=== PATIENT | male | born 1955 | race Caucasian/White ===

== ENCOUNTER 2022-03-11 15:05 | Outpatient (REF) | payer MEDICARE, SELFPAY ==
[2022-03-11 16:35] LABS: ALT 31 U/L (16-63); AST 22 U/L (15-37); Albumin 4.3 g/dL (3.4-5.0); Alkaline Phosphatase 28 U/L (46-116); Anion Gap 10.4 mmol/L (3-11); BUN 23 mg/dL (7-18); Bilirubin, Total 0.2 mg/dL (0.2-1.0); CO2 29.6 mmol/L (21.0-32.0); CREATININE 1.1 mg/dL (0.70-1.30); Calcium 9.4 mg/dL (8.5-10.1); Calculated LDL 97 mg/dL (<100); Chloride 99 mmol/L (98-107); Cholesterol 174 mg/dL (<200); Glucose 102 mg/dL (74-106); HDL Cholesterol 53 mg/dL (40-60); Potassium 4.2 mmol/L (3.5-5.1); Sodium 139 mmol/L (136-145); Total Protein 7.9 g/dL (6.4-8.2); Triglyceride 121 mg/dL (<150)
[2022-03-11 16:51] LABS: Hemoglobin A1C 6.4 % (<5.7)
== END 2022-03-11 15:06 | disposition home or self-care (01) ==
LOC: NCHCN 15:05
PROVIDERS: PCP Nurse Practitioner Family; Visit Provider Nurse Practitioner Family
DX: E11.9 Type 2 diabetes mellitus without complications (principal); I10 Essential (primary) hypertension; M54.50 Low back pain, unspecified
CPT/HCPCS: 80053; 80061; 83036

== ENCOUNTER → 2022-03-20 04:24 | Outpatient (CLI) | payer MEDICARE, SELFPAY ==
--- NOTE | 2022-03-20 | DI.MRI_ITS ---
Exam(s) MR LUMBAR SPINE WO EXAM: MR LUMBAR SPINE WO CLINICAL HISTORY: BACK PAIN W/ RADICULOPATHY M54.16 LUMBOSACRAL DISC DEGENERATION M51.37. TECHNIQUE: Multiplanar multisequence MRI of the Lumbar spine was performed. COMPARISON: No exams were available for comparison FINDINGS: Conus medullaris is at normal level. There is no evidence of conus mass nor subjacent clumping of in trathecal nerve roots to suggest arachnoiditis. The distal thecal sac is at L5-S1 level, slightly hi gher than typical. No evidence of Tarlov intra sacral CIS nor other significant findings within the sacral canal. Bones:There are no fractures nor ominous osseous lesions in the lumbar vertebral bodies and visualize d sacrum. With respect to the individual levels... T12-L1: Unremarkable L1-2: Normal disc height and signal. No disc herniation nor central canal stenosis.No foraminal steno sis L2-3: Normal disc height. No disc herniation nor central canal stenosis.No foraminal stenosis.No face t arthropathy. L3-4: This level exhibits normal disc height but posteriorly there is broad annular bulging and this extends into the floor of the exiting neural foramina bilaterally where this results in an element of bilateral foraminal stenosis, more so on the right side. At the level of the exiting right neural f oramen the annular bulging extends for a distance of 5 millimeters cephalad to the level disc space. In the opposite-left exiting neural foramen and it does not extend above the disc space level. On t he right side there is impingement of the exiting right nerve root in the exiting neural foramen betw een the annulus at this level and overlying right L3 pedicle. Less impingement of the exiting left n erve root is noted. There is mild central spinal canal stenosis which is mostly related to short AP dimensions the pedicles. There are no obvious degenerative overgrowth changes in the facet joints. No significant ligamentum flavum hypertrophy. L4-5: This level exhibits relatively preserved disc height and signal. However, there is an element of mild degenerative anterolisthesis of L4 upon L5 due to advanced facet joint degenerative changes b ilaterally. There is mild central spinal canal stenosis. Lateral recesses are slightly CT are sligh tly carried forward. There is only mild bilateral foraminal stenosis. Preserved fat signal around b oth exiting nerve roots at the level of the exiting bilateral neural foramina. There are no Modic-ty pe sub endplate marrow changes at this level. L5-S1: This level exhibits chronic advanced disc space narrowing with mild Modic type 2 sub endplate fatty marrow changes. There is posterior annular bulging at this level but without a dominant disc h erniation. Central canal dimensions are lower normal. There are moderate degenerative changes in th e left facet joint and mild degenerative changes in the right facet joint. There is mild bilateral v ertical foraminal stenosis at this level due to disc height loss. Soft tissues: paraspinal soft tissues appear unremarkable. IMPRESSION: 1. Findings at the lower 3 levels as described individually above. There is, however, no severe cent ral canal stenosis. Mild foraminal stenosis as described individually above. 2. Mild degenerative anterolisthesis of L4 upon L5 due to advanced facet arthrosis. There is, howeve r, no severe central canal stenosis nor severe foraminal stenosis at this level. 3. No significant osseous lesions. DATA REPOSITORY:
== END ==
PROVIDERS: PCP Nurse Practitioner Family; Visit Provider Nurse Practitioner Family
DX: M99.53 Intervertebral disc stenosis of neural canal of lumbar region; M99.83 Other biomechanical lesions of lumbar region; M43.16 Spondylolisthesis, lumbar region; M51.17 Intervertebral disc disorders with radiculopathy, lumbosacral region
CPT/HCPCS: 72148

== ENCOUNTER 2023-03-25 11:54 | Outpatient (REF) | payer MEDICARE, SELFPAY ==
[2023-03-25 19:38] LABS: Abs Immature Grans 0.02 10^3/uL (0.0-0.06); Absolute Basophil Count 0.11 10^3/uL (0.0-0.2); Absolute Eosinophil Count 0.11 10^3/uL (0.0-0.7); Absolute Lymphocyte Count 2.92 10^3/uL (1.2-3.4); Absolute Monocyte Count 0.66 10^3/uL (0.1-0.8); Absolute Neutrophil Count 3.77 10^3/uL (1.2-6.7); Basophils % 1.4; Eosinophils % 1.4; HGB 13.6 g/dL (13.5-17.5); Immature Grans % 0.3; Lymphocytes % 38.5; MCH 27.7 pg (27.0-33.0); MCHC 32.4 % (32.0-36.0); MCV 86 fL (80-95); MPV 9.6 fL (8.0-11.0); Monocytes % 8.7; Neutrophils % 49.7; Platelet Count 331 10^3/uL (130-400); RBC 4.91 10^6/uL (4.36-5.78); RDW 13.2 % (11.8-14.1); RDW-SD 41.3 fL; WBC 7.59 10^3/uL (4.4-10.8)
[2023-03-25 19:48] LABS: ALT 43 U/L (16-63); AST 30 U/L (15-37); Albumin 4.1 g/dL (3.4-5.0); Alkaline Phosphatase 48 U/L (46-116); Anion Gap 9.6 mmol/L (3-11); BUN 20 mg/dL (7-18); Bilirubin, Total 0.4 mg/dL (0.2-1.0); CO2 26.4 mmol/L (21.0-32.0); CREATININE 1.1 mg/dL (0.70-1.30); Calcium 9.5 mg/dL (8.5-10.1); Calculated LDL 50 mg/dL (<100); Chloride 99 mmol/L (98-107); Cholesterol 114 mg/dL (<200); Estimated GFR 73.58 (mL/min/1.73m2); Glucose 114 mg/dL (74-106); HDL Cholesterol 49 mg/dL (40-60); Potassium 4.2 mmol/L (3.5-5.1); Sodium 135 mmol/L (136-145); TSH (W/Ref FT4) 0.51 uIU/mL (0.36-3.74); Total Protein 7.9 g/dL (6.4-8.2); Triglyceride 76 mg/dL (<150)
[2023-03-26 19:26] LABS: PSA, Screening 0.5 ng/mL (<=4.5)
== END 2023-03-25 11:55 | disposition home or self-care (01) ==
LOC: NCHCN 11:54
PROVIDERS: Visit Provider Nurse Practitioner Family
DX: E78.5 Hyperlipidemia, unspecified (principal); I10 Essential (primary) hypertension; R53.83 Other fatigue; Z12.5 Encounter for screening for malignant neoplasm of prostate; E11.9 Type 2 diabetes mellitus without complications
CPT/HCPCS: 80053; 80061; 84153; 84443; 85025

== ENCOUNTER → 2023-04-09 13:09 | Outpatient (CLI) | payer MEDICARE, SELFPAY ==
--- NOTE | 2023-04-09 | DI.US_ITS ---
Exam(s) US RENAL EXAM: US RENAL CLINICAL HISTORY: HEMATURIA, ON ANTIPLATELETS MEDICATION,R31.9. TECHNIQUE: Rodriguez scale, color and spectral Doppler were used. COMPARISON: No exams were available for comparison FINDINGS: Renal size in cm: Right: 10.0 left: 10.6 Echogenicity: Normal Hydronephrosis: No Cyst or mass: No Nephrolithiasis: No Bladder: 2.0 x 1.7 x 3.1 centimeter mass at the posterior bladder slightly eccentric toward the right . It has a lobulated appearance. No significant blood flow is demonstrated. Findings could represe nt bladder carcinoma versus thrombus. Both ureteral jets were visualized. Prevoid vol: 160 Postvoid vol: 93 Prostate volume 29 cc. IMPRESSION: 3.0 centimeter bladder mass versus adherent thrombus. Cystoscopy recommended. DATA REPOSITORY:
--- NOTE | 2023-04-09 16:34 | DI.VRAD_ITS ---
PROCEDURE INFORMATION: Exam: US Retroperitoneal; Complete; Kidneys and Bladder Exam date and time: 04/09/2023 3:18 PM Age: 68 years old Clinical indication: Other: 2 days blood in urine; Patient HX: Per patient 2 days of blood in urine, no discomfort or difficulty with urination TECHNIQUE: Imaging protocol: Real-time ultrasound of the retroperitoneum with image documentation. Complete exam focused on the kidneys and bladder. COMPARISON: MR LUMBAR SPINE WO 03/20/2022 7:46 AM FINDINGS: Right kidney: 10.0 cm. No hydronephrosis. Left kidney: 10.6 cm. No hydronephrosis. Urinary bladder: Prevoid volume 160 cc. Postvoid volume 93 cc. Bladder mass measuring 2.0 x 1.7 x 3.1 cm. IMPRESSION: Intraluminal bladder mass. Possible bladder carcinoma versus adherent thrombus. Consider cystoscopy. Dictated and Authenticated by: Mirza Sorensen MD. Ordering:MELODY Arthur MD
== END ==
PROVIDERS: Visit Provider Physician Assistant Medical
DX: N32.89 Other specified disorders of bladder (principal); R31.9 Hematuria, unspecified
CPT/HCPCS: 76770

== ENCOUNTER 2023-04-09 20:08 | Outpatient (REF) | payer MEDICARE, SELFPAY ==
[2023-04-09 14:58] LABS: Abs Immature Grans 0.02 10^3/uL (0.0-0.06); Absolute Basophil Count 0.12 10^3/uL (0.0-0.2); Absolute Eosinophil Count 0.13 10^3/uL (0.0-0.7); Absolute Lymphocyte Count 3.04 10^3/uL (1.2-3.4); Absolute Monocyte Count 0.68 10^3/uL (0.1-0.8); Absolute Neutrophil Count 3.69 10^3/uL (1.2-6.7); Basophils % 1.6; Eosinophils % 1.7; HCT 41.1 % (40.0-50.0); HGB 13.4 g/dL (13.5-17.5); Immature Grans % 0.3; Lymphocytes % 39.6; MCH 27.9 pg (27.0-33.0); MCHC 32.6 % (32.0-36.0); MCV 85 fL (80-95); MPV 9.7 fL (8.0-11.0); Monocytes % 8.9; Neutrophils % 47.9; Platelet Count 295 10^3/uL (130-400); RBC 4.81 10^6/uL (4.36-5.78); RDW 13.2 % (11.8-14.1); RDW-SD 41.1 fL; WBC 7.68 10^3/uL (4.4-10.8)
[2023-04-09 15:10] LABS: ALT 33 U/L (16-63); AST 22 U/L (15-37); Alkaline Phosphatase 49 U/L (46-116); Anion Gap 12.3 mmol/L (3-11); BUN 21 mg/dL (7-18); Bilirubin, Total 0.3 mg/dL (0.2-1.0); CO2 26.7 mmol/L (21.0-32.0); Calcium 10.2 mg/dL (8.5-10.1); Chloride 98 mmol/L (98-107); Estimated GFR 82.49 (mL/min/1.73m2); Glucose 148 mg/dL (74-106); Sodium 137 mmol/L (136-145); Total Protein 7.5 g/dL (6.4-8.2)
[2023-04-09 15:16] LABS: C & S Indicated? C&S Done As Ordered; RBC >50 HPF (0-2)
== END 2023-04-09 20:09 | disposition home or self-care (01) ==
LOC: LBN 20:08
PROVIDERS: Visit Provider Physician Assistant Medical
DX: R31.9 Hematuria, unspecified (principal)
CPT/HCPCS: 80053; 81015; 85025; 87086

== ENCOUNTER → 2023-04-10 10:48 | Outpatient (BNVA) | payer MEDICARE, SELFPAY | PROVIDERS: Visit Provider Urology | DX: N32.89 Other specified disorders of bladder (principal); R31.9 Hematuria, unspecified; I10 Essential (primary) hypertension; E11.9 Type 2 diabetes mellitus without complications | CPT/HCPCS: 99204 ==

== ENCOUNTER 2023-04-13 10:42 | Day surgery (SDC) | payer MEDICARE, SELFPAY ==
--- NOTE | 2023-04-13 08:14 | W.ANESPRE ---
General Info Date of Service Date Performed: 04/13/23 Height: 5 ft 7.5 in Weight: 86.183 kg Body Mass Index (BMI): 29.3 Surgical Procedure: Operation Date: 04/13/23 13:10 Proposed Procedure Side Surgeon p Transurethral Resection Bladder Tumor, clot evacuation Dawson Andrade MD Meds Allergies and Home Medications Allergies Allergy/AdvReac Type Severity Reaction Status Date / Time No Known Allergies Allergy Verified 04/13/23 11:04 Home Medication Medication Instructions Recorded atorvastatin 20 mg tablet 20 mg PO DAILY 04/10/23 hydrochlorothiazide 12.5 mg tablet 12.5 mg PO DAILY 04/10/23 losartan 100 mg tablet 100 mg PO DAILY 04/10/23 metformin 500 mg tablet 1,000 mg PO BID 04/10/23 metoprolol tartrate 50 mg tablet 50 mg PO BID 04/10/23 (Lopressor) prasugrel 10 mg tablet 10 mg PO DAILY 04/10/23 sildenafil 50 mg tablet 50 mg PO DAILY PRN 04/10/23 aspirin 81 mg capsule mg 04/13/23 Current Visit Medications: Current Medications Generic Name Dose Route Start Last Admin Trade Name Freq PRN Reason Stop Dose Admin Ringer's Solution 1,000 mls @ 80 mls/hr 04/13/23 06:00 IV 05/10/23 23:59 INFUSION CLARK Cefazolin Sodium/Dextrose 2 gm in 50 mls @ 100 mls/hr 04/13/23 06:00 Ancef Duplex IVPB 05/10/23 23:59 PREOP CLARK IV Miscellaneous Supplies 1 each 04/13/23 06:00 Iv Access IV 05/10/23 23:59 DIRECTED CLARK Sodium Chloride 0 ml 04/13/23 06:00 Normal Saline Flush 10 Ml Syr IV 05/10/23 23:59 PRN PRN Sodium Chloride 0 ml 04/13/23 06:00 Normal Saline 10 Ml Vial IJ 05/10/23 23:59 DIRECTED PRN Sterile Water 0 ml 04/13/23 06:00 Water,Injection,Sterile 10 Ml Vial IJ 05/10/23 23:59 DIRECTED PRN PFSH Active Problems Active Problems: Problem Status Onset Code Gout M10.9 Obesity E66.9 Hyperlipidemia E78.5 Hepatomegaly R16.0 Back pain with radiculopathy M54.10 Lumbosacral disc disease M51.9 Hypertension I10 Diabetes mellitus E11.9 Erectile dysfunction N52.9 Fatigue R53.83 Diarrhea R19.7 Coronary artery disease I25.10 Myocardial infarct I21.9 Hematuria R31.9 Bladder mass N32.89 Surgical History Surgical History H/O carpal tunnel repair H/O heart artery stent History of tonsillectomy and adenoidectomy Status post lumbar laminectomy Tobacco Smoking/Tobacco Use Status: Former Tobacco Use Alcohol Alcohol Intake: current Alcohol intake frequency: a few times a week Alcohol type: hard liquor Substance Use Substance use: Daily Substance use type: marijuana Vital Signs and Lab Results Vital Signs Most Recent Vital Signs in EMR: Temp Pulse Resp BP Pulse Ox 36.6 C 62 17 147/81 H 99 04/13/23 10:54 04/13/23 10:54 04/13/23 10:54 04/13/23 10:54 04/13/23 10:54 Lab Results Blood Type / Crossmatch: No Data to Display Complete Blood Count: White Blood Count 7.68 10^3/uL (4.4-10.8) 04/09/23 10:25 Red Blood Count 4.81 10^6/uL (4.36-5.78) 04/09/23 10:25 Hemoglobin 13.4 g/dL (13.5-17.5) L 04/09/23 10:25 Hematocrit 41.1 % (40.0-50.0) 04/09/23 10:25 Platelet Count 295 10^3/uL (130-400) 04/09/23 10:25 Complete Metabolic Panel: Sodium 137 mmol/L (136-145) 04/09/23 10:25 Potassium 4.0 mmol/L (3.5-5.1) 04/09/23 10:25 Chloride 98 mmol/L (98-107) 04/09/23 10:25 Carbon Dioxide 26.7 mmol/L (21.0-32.0) 04/09/23 10:25 BUN 21 mg/dL (7-18) H 04/09/23 10:25 Creatinine 1.0 mg/dL (0.70-1.30) 04/09/23 10:25 Est GFR (CKD-EPI 2020) 82.49 (mL/min/1.73m2) 04/09/23 10:25 Calcium 10.2 mg/dL (8.5-10.1) H 04/09/23 10:25 Albumin 4.0 g/dL (3.4-5.0) 04/09/23 10:25 Glucose 148 mg/dL (74-106) H 04/09/23 10:25 Liver Function Panel: Alanine Aminotransferase (ALT/SGPT) 33 U/L (16-63) 04/09/23 10:25 Aspartate Amino Transf (AST/SGOT) 22 U/L (15-37) 04/09/23 10:25 Coagulation Panel: No Data to Display Cardiac Panel: No Data to Display Arterial Blood Gas: No Data to Display Venous Blood Gas: No Data to Display Pancreas Panel: No Data to Display Thyroid Panel: Thyroid Stimulating Hormone (TSH) 0.51 uIU/mL (0.36-3.74) 03/25/23 11:28 Infectious Disease: No Data to Display Blood Cultures: No Data to Display Toxicology Panel: No Data to Display Anesthesia Assessment and Plan Anesthesia History Personal History: No History of Anesthesia Complications Family History: No Family History of Anesthesia Complications Exercise Tolerance Exercise Tolerance: Metabolic Equivalents>4 Cardiac & Pulmonary Exam Cardiac Exam: Normal S1/S2 Heart Sounds Pulmonary Exam: Clear Bilateral Breath Sounds Implantable Cardiac Device Does patient have a Pacemaker or an ICD?: No Airway Exam Known Difficult Airway: No Mallampati Class: 3 Mouth Opening: Narrow (< 3cm) Thyromental Distance: Less than 3 cm Neck Range of Motion: Limited ROM Neck Circumference: Normal Teeth Condition: Normal Dentition ASA Classification ASA Score: ASA 3 Emergency Case?: No NPO Status NPO Status: NPO Clears >2 hours, Solids >8 hours Anesthesia Plan Resuscitation Status: Full Code Anesthesia Technique: General Anesthesia Airway Planned: LMA Monitors Used: Standard Monitors Preoperative Comments:: 68 yo male for cysto. Sig PMHx: HTN (losartan, HCTZ, metoprolol), PA (2 stents August 11. diagonal, RCA. effient, aspirin), DM, s/p lami, former smoker, occ EtOH, daily cannabis.
[2023-04-13 08:16] VITALS: BMI 29.3
[2023-04-13 10:54] VITALS: BP 147/81; PULSE 62; RESP 17; TEMP 36.6; O2SAT 99
[2023-04-13] MEDS: Lactated Ringers 1,000 ML 80 ML IV (11:35)
[2023-04-13] MEDS: ceFAZolin 2 GM/50 ML BAG IVPB (14:34)
--- NOTE | 2023-04-13 14:55 | BLADDER_PTH ---
PATIENT: Go Real LOC: [facility] U#:[id number] AGE/SX: 68/M ROOM: RE04/13/[address]: Dawson Andrade MD : [id number] BED: DIS: 04/13/2023 SPEC #: [id number] RECD: 04/13/23 17:46 STATUS: CAIO REQ #: [id number] TYLER: 04/13/23 14:[address]: Dawson Andrade DEPT: Surgical Specimen RECD BY: Nimisha Montgomery ENTERED: 04/13/23 17:46 SP TYPE: Bladder OTHR DR: None Tissues: 1 - BLADDER BIOPSY Procedures: GROSS AND MICRO LEVEL 4 Comments: [id number]
--- NOTE | 2023-04-13 14:58 | W.PM.DSUDISC ---
Date of service: 04/13/23 Time of Service: 14:58 Discharge Plan Disposition Condition: Stable Discharge Details Attending Provider: Dawson Andrade Primary Care Provider: None,None Home Meds and New Rx's Prescriptions: No Action metformin 500 mg tablet 1,000 mg PO BID prasugrel [Effient] 10 mg tablet 10 mg PO DAILY metoprolol tartrate [Lopressor] 50 mg tablet 50 mg PO BID hydrochlorothiazide 12.5 mg tablet 12.5 mg PO DAILY losartan 100 mg tablet 100 mg PO DAILY sildenafil [Viagra] 50 mg tablet 50 mg PO DAILY PRN Rx Instructions: administer 30 minutes to 4 hours before activity atorvastatin 20 mg tablet 20 mg PO DAILY aspirin 81 mg Capsule Discharge Instructions Additional Instructions: arrange time for telehealth/phone visit in @ 2 weeks to discuss pathology results may restart Effient 04/16 if no blood is seen in urine Activity:: no lifting over 10 pounds for 24 hours Shower/Bathe:: 24 hours Diet:: As Tolerated
--- NOTE | 2023-04-13 15:01 | W.PM.OP ---
Date of service: 04/13/23 Time of Service: 15:01 Operative Note Operative Note DATE OF PROCEDURE: 04/13/23 PRE-OP DIAGNOSIS: Hematuria POST-OP DIAGNOSIS: same small bladder tumor PROCEDURE: cystoscopy with TUR Bladder tumor (less than 2 cm) SURGEON: Dawson Andrade ANESTHESIA TYPE: Local By Surgeon and General:No Airway Refer to Anesthesia Record ESTIMATED BLOOD LOSS: 10 PATHOLOGY: other (bladder tumor) COMPLICATIONS: None Patient was transported to: same day Patient's condition: stable Implants: none Indications: This is a 68-year-old gentleman who recently developed gross hematuria and had been passing clots in the urine. He was evaluated with a renal ultrasound and a mass was identified in the bladder. We discontinued his antiplatelet medications and he presents now for cystoscopy, clot evacuation and possible TUR bladder tumor. Findings: small papillary lesion (less than 2 cm) lateral to right ureteral orifice Procedure Description: The patient was brought to the operating room on 04/13/2023. He was given a dose of preoperative IV antibiotics. After successful induction of general anesthesia without intubation, he was placed in the dorsal lithotomy position. His genitalia was prepped and draped. 2% Xylocaine jelly was instilled into the urethra to act as a local anesthetic. A 24 [place] resectoscope sheath was passed through the urethra into the bladder. We inspected the urethra and bladder using a 30 degree lens. The pendulous, bulbar and membranous urethra was all appeared normal with no strictures. The prostatic urethra showed some lateral lobe enlargement but no significant median lobe. No active bleeding was seen on the prostatic mucosa. There were no papillary changes on the prostatic mucosa. The bladder neck was entered and the bladder mucosa was inspected. Both ureteral orifices appeared normal with no blood coming from either side. No remaining blood clots were seen in the bladder, but just lateral to the right ureteral orifice, there was a small (less than 2 cm) papillary lesion suspicious for low-grade urothelial cell carcinoma. The remainder of the bladder was inspected with both the 30 and 70 degree lens. No additional papillary or nodular lesions were noted. I then used the [employer] resectoscope and bipolar cautery to perform transurethral resection of the small bladder tumor. The resected tissue was evacuated and sent to pathology for permanent section. The resection site was then cauterized using the coagulation current. Hemostasis appeared excellent. The bladder was emptied and the resectoscope was removed. The patient tolerated this procedure well with no complications.
[2023-04-13 15:04] VITALS: BP 93/56; PULSE 74; RESP 18; TEMP 36.4; O2SAT 97
--- NOTE | 2023-04-13 15:08 | W.ANESPOSTOP ---
Postoperative Evaluation Date, Time and Location Date Performed: 04/13/23 Time Performed: 15:08 Patient Location: Day Surgery Unit Vital Signs Most Recent Imported Vital Signs: Most Recent Vital Signs Temp Pulse Resp BP Pulse Ox 36.6 C 62 17 147/81 H 99 04/13/23 10:54 04/13/23 10:54 04/13/23 10:54 04/13/23 10:54 04/13/23 10:54 Most Recent Manually Entered Vital Signs: Adult Blood Pressure: 90/49 Heart Rate: 72 Respirations: 18 Oxygen Saturation (%): 97 Temperature (C): 36.4 C Pain Score (0-10 Scale): 2 Pain Score Most Recent Pain Score: Most Recent Pain Score Pain Level 0 04/13/23 10:54 Assessment Mental Status: Arousable with meaningful communication Airway and Respiratory Function: Patent airway with normal (patient baseline) respiratory exam Cardiovascular Function: Hemodynamically Stable Hydration Status: Adequately Hydrated Nausea & Vomiting: No Nausea or Vomiting Pain: Pain is tolerable per patient Peripheral Nerve Block: Patient did not receive a nerve block
[2023-04-13 15:09] VITALS: BP 90/49; PULSE 72; RESP 18; TEMPC 36.4; O2SAT 97
[2023-04-13] MEDS: Phenazopyridine 200 MG TAB PO (15:13)
[2023-04-13 15:30] VITALS: BP 113/70; PULSE 58; RESP 18; TEMP 36.4; O2SAT 98
== END 2023-04-13 16:16 | disposition home or self-care (01) ==
PROVIDERS: Visit Provider Urology
PROC: 0TBB8ZZ Excision of Bladder, Via Natural or Artificial Opening Endoscopic (ICD-10-PCS; CPT 52234; principal; 2023-04-13 13:00)
DX: R31.0 Gross hematuria (principal); C67.2 Malignant neoplasm of lateral wall of bladder; E11.9 Type 2 diabetes mellitus without complications; I25.10 Atherosclerotic heart disease of native coronary artery without angina pectoris; I25.2 Old myocardial infarction
CPT/HCPCS: 52234; 88305; J0690; J1100; J1885; J2001; J2405; J2704

== ENCOUNTER → 2023-05-07 13:56 | Outpatient (BNVA) | payer MEDICARE, SELFPAY | PROVIDERS: Visit Provider Urology | DX: C68.9 Malignant neoplasm of urinary organ, unspecified (principal) | CPT/HCPCS: 99443 ==

== ENCOUNTER → 2024-01-25 13:54 | Outpatient (CLI) | payer MEDICARE, SELFPAY ==
--- NOTE | 2024-01-25 15:53 | DI.RAD_ITS ---
Exam(s) XR FOOT LT COMPLETE EXAM: XR FOOT LT COMPLETE CLINICAL HISTORY: PAIN IN L FOOT, M79.672. TECHNIQUE: 2D digital imaging was performed of the left foot. Three images were obtained. AP, obli que and lateral views were obtained. COMPARISON: No exams were available for comparison FINDINGS: BONES: No acute fracture is present. There is a deformity of the distal aspect of the distal phalanx of the great toe. There is loss of volume of the distal phalanx. There is irregularity of the ilia x distally. There is soft tissue swelling of the great toe. The interphalangeal joint is well maint ained. No radiopaque foreign bodies are seen in the soft tissues. There is an enthesophyte at the p osterior calcaneus. JOINTS: No dislocation present. SOFT TISSUE: No soft tissue gas is present. IMPRESSION: 1. No acute fracture or dislocation. 2. Deformity involving the distal phalanx of the great toe with loss of volume and soft tissue swelli ng. Differential considerations include posttraumatic or postsurgical changes. Please correlate wit h the patient's clinical history. Infection should also be considered. If there is continued concer n, an MRI should be considered for further evaluation. If there are prior films for comparison, they may be submitted and an addendum will be issued at that time. Unexpected findings DATA REPOSITORY: RADIATION DOSE DELIVERED:
== END ==
PROVIDERS: Visit Provider Nurse Practitioner Family
DX: M79.672 Pain in left foot (principal); M20.5X2 Other deformities of toe(s) (acquired), left foot; M79.89 Other specified soft tissue disorders
CPT/HCPCS: 73630

== ENCOUNTER → 2024-02-23 08:16 | Outpatient (BNVA) | payer MEDICARE, SELFPAY | PROVIDERS: PCP Nurse Practitioner Family; Referring Provider Nurse Practitioner Family; Visit Provider Podiatrist | DX: M76.72 Peroneal tendinitis, left leg (principal); G57.61 Lesion of plantar nerve, right lower limb; G62.9 Polyneuropathy, unspecified; E11.40 Type 2 diabetes mellitus with diabetic neuropathy, unspecified; M67.01 Short Achilles tendon (acquired), right ankle; M79.672 Pain in left foot; Z98.1 Arthrodesis status | CPT/HCPCS: 99213 ==

== ENCOUNTER → 2024-03-08 08:18 | Outpatient (BNVA) | payer MEDICARE, SELFPAY | PROVIDERS: PCP Nurse Practitioner Family; Referring Provider Nurse Practitioner Family; Visit Provider Urology | DX: C68.9 Malignant neoplasm of urinary organ, unspecified (principal) | CPT/HCPCS: 52000; 81003 ==

== ENCOUNTER → 2024-03-16 08:06 | Outpatient (BNVA) | payer MEDICARE, SELFPAY | PROVIDERS: PCP Nurse Practitioner Family; Referring Provider Nurse Practitioner Family; Visit Provider Podiatrist | DX: M76.72 Peroneal tendinitis, left leg (principal); G57.61 Lesion of plantar nerve, right lower limb; G62.9 Polyneuropathy, unspecified; E11.40 Type 2 diabetes mellitus with diabetic neuropathy, unspecified; M67.01 Short Achilles tendon (acquired), right ankle; M79.672 Pain in left foot; R20.2 Paresthesia of skin; M79.671 Pain in right foot | CPT/HCPCS: 99213 ==

== ENCOUNTER 2024-03-22 15:29 | Outpatient (CLI) | payer MEDICARE, SELFPAY ==
[2024-03-22 16:33] LABS: ALT 37 U/L (16-63); AST 25 U/L (15-37); Albumin 4.2 g/dL (3.4-5.0); Alkaline Phosphatase 54 U/L (46-116); Bilirubin, Direct 0.1 mg/dL (0.0-0.2); Bilirubin, Total 0.35 mg/dL (0.2-1.0); Total Protein 8.1 g/dL (6.4-8.2)
== END 2024-03-22 15:30 | disposition home or self-care (01) ==
LOC: LBO 15:29
PROVIDERS: PCP Nurse Practitioner Family; Visit Provider Nurse Practitioner Family
DX: K76.0 Fatty (change of) liver, not elsewhere classified (principal)
CPT/HCPCS: 36415; 80076

== ENCOUNTER → 2025-01-31 08:50 | Outpatient (BNVA) | payer MEDICARE, SELFPAY | PROVIDERS: PCP Nurse Practitioner Family; Referring Provider Nurse Practitioner Family; Visit Provider Urology | DX: Z85.51 Personal history of malignant neoplasm of bladder (principal); N32.89 Other specified disorders of bladder; N52.9 Male erectile dysfunction, unspecified; R31.9 Hematuria, unspecified | CPT/HCPCS: 81002; 52000 ==

== ENCOUNTER 2025-03-21 15:55 | Outpatient (REF) | payer MEDICARE, SELFPAY ==
[2025-03-21 17:06] LABS: COMMENT (LAB VIEW ONLY) 47.11 mg/dL; Microalb ug/mg Crea 14.6 ug/mg Cr
== END 2025-03-21 15:56 | disposition home or self-care (01) ==
LOC: NCHCN 15:55
PROVIDERS: PCP Nurse Practitioner Family; Visit Provider Student in an Organized Health Care Education/Training Program
DX: E11.9 Type 2 diabetes mellitus without complications (principal)
CPT/HCPCS: 82043; 82570